=== PATIENT | male | born 1990 | race African-American/Black ===

== ENCOUNTER 2019-05-07 18:23 | Emergency (ER) | payer MEDICAID, OTHER ==
[~2019-05-07] VITALS: Ht 175.3 cm; Wt 59.0 kg
[2019-05-07] MEDS ORDERED: NKM (18:31)
--- NOTE | 2019-05-07 18:39 | NUR ---
ED Nurse Note: Patient walked into ED from home c/o burning sensation during urination started 2 weeks ago. Denies n/v/d. VSS, no distress noted. Will continue to monitor.
[2019-05-07 18:40] VITALS: BP 117/79
--- NOTE | 2019-05-07 19:01 | NUR ---
ED Nurse Note: urine collected and sent to lab
--- NOTE | 2019-05-07 19:08 | NUR ---
HAND-OFF: Report given to CHRISTA Prince.
[2019-05-07 19:32] LABS: APPEARANCE,URINE SLIGHTLY CLOUDY; BILIRUBIN, URINE NEGATIVE (NEGATIVE); COLOR,URINE PALE YELLOW; GLUCOSE, URINE (UA) NEGATIVE (NEGATIVE); KETONES,URINE NEGATIVE (NEGATIVE); LEUKOCYTE ESTERASE ,URINE 2+ (NEGATIVE); NITRITE,URINE NEGATIVE (NEGATIVE); PH,URINE 6.5 (4.5-8.0); PROTEIN,URINE 1+ (NEGATIVE); UROBILINOGEN,URINE 1 MG/DL (0.0-1.0)
[2019-05-07] MEDS ORDERED: CEPHALEXIN500 MG ORAL (20:14)
[2019-05-07] MEDS ORDERED: Cephalexin 500mg cap ORAL ONE (20:15)
[2019-05-07 20:27] VITALS: BP 117/79
--- NOTE | 2019-05-07 20:28 | NUR ---
ED Nurse Note: Pt cleared by health care Provider for discharge. DC instructions/prescription was given and explained to pt and verbalized understanding of teachings. All medical deviecs such as ID band removed. Pt is AAO x4, ambulatory and left with all personal belongings.
--- NOTE | 2019-05-07 21:28 | Emergency Room Report ---
History of Present Illness General Chief Complaint: Male Urogenital Problems Source: Patient Present Illness HPI 29 yo M presents to ED for evaluation. Patient complaining of dysuria and frequent urination for the last 2 weeks. Pain is burning, 5 out of 10, nonradiating. Denies fevers or chills. Denies flank pain. Denies nausea or vomiting. Denies any discharge. Denies any unprotected sex. No other aggravating relieving factors. Denies any other associated symptoms Allergies: Coded Allergies: No Known Allergies (Unverified , 05/07/19) Patient History Past Medical History: none Past Surgical History: none Pertinent Family History: none Social History: Denies: smoking, alcohol use, drug use Immunizations: UTD Reviewed Nursing Documentation: PMH: Agreed; PSxH: Agreed Nursing Documentation-PMH Past Medical History: No Stated History Review of Systems All Other Systems: negative except mentioned in HPI Physical Exam Vital Signs Date Time Temp Pulse Resp B/P (MAP) Pulse Ox O2 Delivery O2 Flow Rate FiO2 05/07/19 18:28 97.5 63 18 117/79 (92) 98 Room Air Sp02 EP Interpretation: reviewed, normal General Appearance: no apparent distress, alert, GCS 15, non-toxic Head: normocephalic, atraumatic Eyes: bilateral eye normal inspection, bilateral eye PERRL ENT: hearing grossly normal, normal pharynx, no angioedema, normal voice Neck: full range of motion, supple/symm/no masses Respiratory: chest non-tender, lungs clear, normal breath sounds, speaking full sentences Cardiovascular #1: regular rate, rhythm, no edema Cardiovascular #2: 2+ carotid (R), 2+ carotid (L), 2+ radial (R), 2+ radial (L) , 2+ dorsalis pedis (R), 2+ dorsalis pedis (L) Gastrointestinal: normal bowel sounds, non tender, soft, non-distended, no guarding, no rebound Rectal: deferred Genitourinary: normal inspection, no CVA tenderness Musculoskeletal: back normal, normal range of motion, gait/station normal, non- tender Neurologic: alert, motor strength/tone normal, oriented x3, sensory intact, responsive, speech normal Psychiatric: judgement/insight normal, memory normal, mood/affect normal, no suicidal/homicidal ideation Reflexes: 3+ bicep (R), 3+ bicep (L), 3+ tricep (R), 3+ tricep (L), 3+ knee (R) , 3+ knee (L) Lymphatic: no adenopathy Medical Decision Making Diagnostic Impression: Primary Impression: UTI (urinary tract infection) Qualified Codes: N30.01 - Acute cystitis with hematuria ER Course Hospital Course 29-year-old female presents to ED complaining of dysuria Differential diagnoses include: UTI, cystitis, pyelonephritis Clinical course Patient placed on stretcher. After initial history and physical I ordered UA UA + bacteria + blood. consistent with cystitis Discussed findings with patient. Afebrile. Nontoxic-appearing. Will discharge to home with antibiotics. Given Keflex in ED. Does not have a PMD. Will provide referrals Diagnosis - UTI Stable and discharged home with prescriptions for Rx keflex. Instructed to followup with PMD. Return to ED if symptoms recur or worsen Labs Test 05/07/19 19:05 Urine Color Pale yellow Urine Appearance Slightly cloudy Urine pH 6.5 (4.5-8.0) Urine Specific [place] 1.015 (1.005-1.035) Urine Protein 1+ (NEGATIVE) Urine Glucose (UA) Negative (NEGATIVE) Urine Ketones Negative (NEGATIVE) Urine Blood Negative (NEGATIVE) Urine Nitrite Negative (NEGATIVE) Urine Bilirubin Negative (NEGATIVE) Urine Urobilinogen 1 MG/DL (0.0-1.0) Urine Leukocyte Esterase 2+ (NEGATIVE) Urine RBC 0-2 /HPF (0 - 0) Urine WBC 60-80 /HPF (0 - 0) Urine Squamous Epithelial Cells Occasional /LPF Urine Bacteria Moderate /HPF (NONE) Last Vital Signs Date Time Temp Pulse Resp B/P (MAP) Pulse Ox O2 Delivery O2 Flow Rate FiO2 05/07/19 20:27 97.5 89 18 117/79 98 Room Air Status: improved Disposition: HOME, SELF-CARE Condition: Stable Scripts Cephalexin* (KEFLEX*) 500 Mg Capsule 500 MG ORAL EVERY 6 HOURS for 7 Days, CAP Prov: Jesse Cowan MD 05/07/19 Referrals: [facility] Patient Instructions: Urinary Tract Infection Jesse Cowan MD May 07, 2019 21:28
== END 2019-05-07 20:25 | disposition home or self-care (01) ==
LOC: EMR 19:00
DX: N30.01 Acute cystitis with hematuria (principal)
CPT/HCPCS: 81003; 87086; Z7502; 99283